=== PATIENT | female | born 1980 | race Caucasian/White ===

== ENCOUNTER 2019-05-23 05:37 | Inpatient (IN) | payer OTHER ==
[2019-05-23] VITALS (22 sets, daily range): BP systolic 107–140; BP diastolic 57–83; PULSE 70–84; RESP 10–19; Ht 160 cm; Wt 74.0 kg
[~2019-05-23] VITALS: Ht 160 cm; Wt 74.0 kg
--- NOTE | 2019-05-23 07:30 | HP ---
Date/Time of Note Date/Time of Note DATE: 05/23/19 TIME: 07:26 Assessment/Plan VTE Prophylaxis SCD applied (from Nsg): Yes Pharmacological prophylaxis: LMWH Lines/Catheters IV Catheter Type (from Nrsg): Peripheral IV Assessment/Plan Assessment/Plan Fibroid uterus Menometrorrhagia Plan: Exploratory Laparotomy, Total Abdominal Hysterectomy, Bilateral Salpingectomy HPI/ROS Admit Date/Time Admit Date/Time May 23, 2019 at 05:37 Hx of Present Illness 39 YO with fibroid uterus and menorrhagia desires to have definitive surgery with hysterectomy. options of removing or retaining the ovaries d/w patient. the risk of future ovarian cancer which is 1 in 60 women d/w patient. she desires to retain her ovaries. Surgical risks including infection, bleeding, damage to other organs, blood transfusion d/w patient. Informed consent obtained. ROS Constitutional: no complaints, improved Eyes: no complaints ENT: no complaints Respiratory: no complaints Cardiovascular: no complaints Gastrointestinal: no complaints Genitourinary: no complaints Musculoskeletal: no complaints Skin: no complaints Neurologic: no complaints Endocrine: no complaints Lymphatic: no complaints Psychological: no complaints, nl mood/affect Immunologic: no complaints PMH/Family/Social Past Medical History Medical History: other (Migraines, h/o gastric ulcer) Coded Allergies: butabarbital (Verified Allergy, Unknown, 05/23/19) clindamycin (Verified Allergy, Unknown, 05/23/19) Past Surgical History Past Surgical Hx: cholecystectomy (umbilical hernia, delivery x 1), other Family History Significant Family History: no pertinent family hx Social History Alcohol Use: none Smoking Status: Never smoker Drug Use: none Exam/Review of Systems Vital Signs Vitals Vital Signs Date Temp Pulse Resp B/P (MAP) Pulse Ox O2 O2 Flow FiO2 Time Delivery Rate 05/23/19 98.0 79 18 116/64 98 06:38 (81) Exam Constitutional: alert, oriented, well developed Psych: no complaints, nl mood/affect Head: normocephalic, atraumatic Eyes: nl conjunctiva, EOMI, nl lids, nl sclera, PERRL ENMT: nl external ears & nose, nl lips & teeth, nl nasal mucosa & septum Neck: supple, non-tender Respiratory: clear to auscultation, normal air movement Cardiovascular: regular rate and rhythm, nl pulses Gastrointestinal: soft, nl liver, spleen, non-tender Musculoskeletal: nl extremities to inspection Extremities: normal pulses Neurological: DEPENDENCY PROGRAM DIRECTOR II-XII intact, nl mental status, nl speech, nl strength Skin: nl turgor; No rash or lesions Lymph: nl lymph nodes SHANDA FELTON MD May 23, 2019 07:30
--- NOTE | 2019-05-23 07:34 | PREAC ---
Date/Time of Note Date/Time of Note DATE: 05/23/19 TIME: 07:33 Anesthesia Eval and Record Evaluation Time Pre-Procedure Interview DATE: 05/23/19 TIME: 07:33 Age 39 Sex female NPO: 8 hrs Preoperative diagnosis bleeding Planned procedure explartory laparotom, YURIDIA Past Medical History Past Medical History: None Surgery & Anesthesia Issues No known issue Meds Anticoagulation: No Beta Giovani within 24 hr: No Reason Beta Giovani not given: Pt. not on B-Giovani No Active Prescriptions or Reported Meds Meds reviewed: Yes Allergies Coded Allergies: butabarbital (Verified Allergy, Unknown, 05/23/19) clindamycin (Verified Allergy, Unknown, 05/23/19) Allergies Reviewed: Yes Labs/Studies Labs Reviewed: Reviewed by anesthesiologist Blood Bank Test 05/23/19 06:26 05/23/19 06:44 Blood Product Summary Counts Blood Type O POSITIVE test: Negative Pre-procedure Exam Last vitals Vital Signs Date Temp Pulse Resp B/P (MAP) Pulse Ox O2 O2 Flow FiO2 Time Delivery Rate 05/23/19 98.0 79 18 116/64 98 06:38 (81) Airway: Adequate mouth opening, Adequate thyromental dist Mallampati: Mallampati III Teeth: Normal Lung: Normal Heart: Normal ASA Physical Status ASA physical status: 1 Emergency: None Pre-operative Attestations Prior to commencing anesthesia and surgery, the patient was re-evaluated, there was verification of: *The patient's identity *The results of appropriate recent lab work and preoperative vital signs *The above evaluation not changing prior to induction *Anesthetic plan, risk benefits, alternative and complications discussed with patient/family; questions answered; patient/family understands, accepts and wishes to proceed. ENE KING DO May 23, 2019 07:34
[2019-05-23] MEDS ORDERED: DIPHENHYDRAMINE 50 MG INJ ONE ×2 (07:40→09:58)
[2019-05-23] MEDS ORDERED: PROPOFOL 20 ML ONE (07:47)
[2019-05-23] MEDS ORDERED: ROCURONIUM 50 MG INJ ONE (07:47)
[2019-05-23] MEDS ORDERED: morphine SULFATE/PF (10 MG/10 ML) INJ ONE (07:49)
[2019-05-23] MEDS ORDERED: MIDAZOLAM 1 MG/ML 2 ML INJ ONE (07:49)
[2019-05-23] MEDS ORDERED: ONDANSETRON 4 MG INJ IV PRN (08:00)
[2019-05-23] MEDS ORDERED: DIPHENHYDRAMINE 50 MG INJ IV PRN (08:00)
[2019-05-23] MEDS ORDERED: NALOXONE (0.4 MG/ML) INJ IV PRN (08:00)
[2019-05-23] MEDS ORDERED: DESFLURANE 15 MIN ONE (08:00)
[2019-05-23] MEDS ORDERED: SCOPOLAMINE 1.5 MG PATCH ONE (08:05)
[2019-05-23] MEDS ORDERED: FAMOTIDINE 20 MG INJ ONE (08:05)
[2019-05-23] MEDS ORDERED: DEXAMETHASONE 4 MG/ML 5 ML INJ ONE ×2 (08:05→08:46)
[2019-05-23] MEDS ORDERED: ONDANSETRON 4 MG INJ ONE (08:05)
[2019-05-23] MEDS ORDERED: CEFAZOLIN 1 GM INJ ONE (08:05)
[2019-05-23] MEDS ORDERED: ROPIVACAINE 0.5 % 30 ML VIAL ONE (08:46)
[2019-05-23] MEDS ORDERED: SUGAMMADEX SODIUM 200 MG/2 ML VIAL IV ONE (09:50)
--- NOTE | 2019-05-23 09:53 | OPR ---
Date/Time of Note Date/Time of Note DATE: 05/23/19 TIME: 09:43 Operative Report Procedure Date: May 23, 2019 Preoperative Diagnosis Fibroid Uterus Menometrorrhagia Postoperative Diagnosis Same Operation/Procedure Performed Exploratory laparotomy Total abdominal hysterectomy Lysis of adhesions Bilateral salpingectomies. Surgeon Shanda Davis MD Pond Worker Caitlyn Tran MD Anesthesia Type: general Estimated Blood Loss: 100 - 150 ml's Transfusion none Specimen Uterus and Tubes Grafts/Implants none Tubes/Drains Ennis Cath Complications none Pt Condition Post Procedure: stable Disposition: PACU Procedure Description COMPLICATIONS: None. FINDINGS: There were dense adhesions from the omentum to anterior abdominal wall. normal ovaries bilaterally, fibroid uterus INFORMED CONSENT: Please see my preop H and P for the consent process. The patient desires to retain her ovaries despite being at relative risk of future ovarian cancer which is 1 in 60 women. DESCRIPTION OF PROCEDURE: She was taken to the operating room. General anesthesia was induced. She was prepped and draped in the usual sterile fashion. Vaginal prep and abdominal prep was done. Ennis catheter was inserted. She was in the supine position. After she was prepped and draped, surgical time out was done, surgery and patient was identified. Then, we proceeded and made a Pfannenstiel skin incision. Incision was taken down in layers. The fascia was cut, undermined, from the underlying muscle using sharp and blunt dissection. All the bleeders were cauterized. We had to proceed with lysis of adhesions from the omentum to the anterior ab dominal wall to get access to our surgical site, at all times protecting the bowel. We took down the adhesions and then an large Christian retractor was placed, 4 moist laparotomy packs were used to pack the bowel away. Two large clamps were used to grab the uterus. The right round ligament was coagulated and transected using the Voyant. Same procedure on the contralateral side. Then, we proceeded with developing a bladder flap using a sharp and blunt dissection. there was dense adhesions between bladder and low uterine segment. Bladder was pushed down. A window was developed in the round ligament and the utero-ovarian pedicle on the right side was coagulated and transected using the Voyant. There was no bleeding. Same procedure was done on contralateral side. Bladder flap was pushed further down and the right uterine artery pedicle was clamped, cut, suture ligated. The left uterine artery was clamped, cut, suture ligated. The bladder flap was pushed further down and the cardinal ligaments were clamped, cut, suture ligated using straight Renzo clamps and the uterosacrals were clamped, cut, suture ligated. The vagina was entered using a knife and using Roly scissors, the specimen was cut and sent to pathology. The vaginal apex on both sides was suture ligated and then interrupted sutures were used to place [id number] sutures to close the cuff. Bilateral salpingectomies were done using Voyant. We irrigated and then we filled the pelvis using warm water and there was absolutely no evidence of any bleeding from any our pedicles. Each pedicle was evaluated individually. The vaginal cuff was evaluated very carefully and there was no bleeding. At this time, the posterior peritoneum was closed using a 2-0 Vicryl and all laparotomy packs were removed. Christian removed. I explored the abdomen, there were no laparotomy packs left inside. The peritoneum was closed using 2-0 Vicryl. The rectus muscles reapproximated using 2-0 Vicryl. Rectus muscles, rectus fascia were evaluated, all bleeders cauterized. Rectus fascia was closed using #1 Vicryl. Subcutaneous tissue was cleaned, irrigated, all bleeders cauterized and closed using 3-0 plain and then the skin closed using Insorb. All counts were correct. The patient tolerated the procedure well. SHANDA DAVIS MD May 23, 2019 09:53
[2019-05-23] MEDS: METOCLOPRAMIDE 10 MG INJ IV PRN (10:22)
[2019-05-23] MEDS: ONDANSETRON 4 MG INJ IV PRN (10:23)
[2019-05-23] MEDS: morphine 2 MG INJ IV PRN ×4 (10:27→20:42)
[2019-05-23] MEDS: KETOROLAC 30 MG INJ IV PRN ×2 (10:27→18:56)
[2019-05-23] MEDS: OXYCODONE/ACETAMINOPHEN (5/325) TAB PO PRN ×2 (11:05→15:13)
--- NOTE | 2019-05-23 12:00 | PAC ---
Date/Time of Note Date/Time of Note DATE: 05/23/19 TIME: 11:59 Post-Anesthesia Notes Post-Anesthesia Note Last documented vital signs Vital Signs Date Temp Pulse Resp B/P (MAP) Pulse Ox O2 O2 Flow FiO2 Time Delivery Rate 05/23/19 73 14 134/75 100 Room Air 11:08 (94) 05/23/19 2.0 10:18 05/23/19 98.1 10:05 Activity: WNL Respiratory function: WNL Cardiovascular function: WNL Mental status: Baseline Pain reasonably controlled: Yes Hydration appropriate: Yes Nausea/Vomiting absent: Yes ENE KING DO May 23, 2019 12:00
[2019-05-23] MEDS: CEFAZOLIN 2 GM/50 ML (PMX) 50 ML IVPB SCH ×2 (14:56→22:50)
[2019-05-23] MEDS: MAGNESIUM HYDROXIDE 30ML CUP PO SCH (20:41)
[2019-05-23] MEDS: MINERAL OIL 30ML CUP PO SCH (20:41)
[2019-05-24] MEDS: morphine 2 MG INJ IV PRN ×4 (00:23→19:44)
[2019-05-24 02:00] VITALS: BP 99/61; PULSE 77; RESP 19
[2019-05-24] MEDS: CEFAZOLIN 2 GM/50 ML (PMX) 50 ML IVPB SCH (05:52)
[2019-05-24 08:00] VITALS: BP 100/63; PULSE 72; RESP 16
[2019-05-24] MEDS: MINERAL OIL 30ML CUP PO SCH ×2 (08:12→20:33)
[2019-05-24] MEDS: OXYCODONE/ACETAMINOPHEN (5/325) TAB PO PRN ×4 (08:12→23:50)
[2019-05-24] MEDS: ENOXAPARIN 40 MG/0.4 ML SYG SC SCH (08:12)
[2019-05-24] MEDS: MAGNESIUM HYDROXIDE 30ML CUP PO SCH ×2 (08:12→20:29)
--- NOTE | 2019-05-24 08:21 | PN ---
Date/Time of Note Date/Time of Note DATE: 05/24/19 TIME: 08:17 Assessment/Plan Lines/Catheters IV Catheter Type (from [facility]): Peripheral IV Ennis in Place (from [facility]): No Assessment/Plan Assessment/Plan POD # 1 s/p YURIDIA, ASHLEE Bilateral Salpingectomies plan is increase ambulation. advance diet. Laxatives Subjective 24 Hr Interval Summary Denies flats or BM. Denies BM. only ambulated to bathroom. she agrees to increase ambulation Constitutional: urine output Feeding: advancing diet Exam/Review of Systems Vital Signs Vitals Vital Signs Date Temp Pulse Resp B/P (MAP) Pulse Ox O2 O2 Flow FiO2 Time Delivery Rate 05/24/19 98.0 77 19 99/61 (74) 100 02:00 05/23/19 Room Air 12:50 05/23/19 2.0 10:18 Intake and Output 05/23/19 05/23/19 05/24/19 1515:00 23:00 07:00 IntakeIntake Total 2000 ml 290 ml 340 ml OutputOutput Total 1600 ml BalanceBalance 2000 ml -1310 ml 340 ml Exam Constitutional: alert, oriented, well developed Psych: no complaints, nl mood/affect Cardiovascular: regular rate and rhythm, nl pulses Gastrointestinal: other (sof, appropriate tenderness. incision is covered.) Extremities: normal pulses Results Result Diagram: 05/24/19 0539 05/24/19 0539 SHANDA FELTON MD May 24, 2019 08:21
[2019-05-24 14:30] VITALS: BP 110/59; PULSE 73; RESP 14
--- NOTE | 2019-05-24 15:43 | RADRPT ---
Vent Rate: 62 bpm RR Interval: 964 msec ID Interval: 138 msec QRS Duration: 89 msec QT Interval: 418 msec QTC Interval: 426 msec P-R-T Naoma: 63 - 61 - 51 degrees Sinus rhythm...normal P axis, V-rate 50- 99 Electronically Signed By: Justo Clement
[2019-05-24 20:00] VITALS: BP 110/55; PULSE 66; RESP 17
[2019-05-25 02:00] VITALS: BP 95/50; PULSE 65; RESP 15
[2019-05-25] MEDS: ONDANSETRON 4 MG INJ IV PRN ×2 (06:27→12:15)
[2019-05-25] MEDS: METOCLOPRAMIDE 10 MG INJ IV PRN (07:25)
[2019-05-25 08:07] VITALS: BP 120/59; PULSE 83; RESP 17
[2019-05-25] MEDS: MINERAL OIL 30ML CUP PO SCH ×2 (10:09→20:19)
[2019-05-25] MEDS: MAGNESIUM HYDROXIDE 30ML CUP PO SCH ×2 (10:09→20:19)
[2019-05-25] MEDS: ENOXAPARIN 40 MG/0.4 ML SYG SC SCH (10:11)
[2019-05-25 14:00] VITALS: BP 107/64; PULSE 80; RESP 16
[2019-05-25] MEDS: ACETAMINOPHEN 325 MG TAB PO PRN ×2 (14:45→19:17)
[2019-05-25 20:00] VITALS: BP 98/54; PULSE 76; RESP 18
--- NOTE | 2019-05-26 | QN ---
Documentation Comment passing flatus no b.m yet pain control ok vss afebrile abdomen soft wound dressing removed right half of wound not approximated well when dressing removed portion of steri strip off redressed after steri strip on CVA neg for tenderness vaginal spotting min once calf neg for tenderness po CBC12.1/11.9,35.5 A s/p YURIDIA ,lysis of adhesion BS P discharge home in am SURJIT CORRIGAN MD May 26, 2019 00:00
[2019-05-26 02:00] VITALS: BP 107/63; PULSE 85; RESP 17
[2019-05-26] MEDS: ACETAMINOPHEN 325 MG TAB PO PRN (03:00)
[2019-05-26] MEDS: ONDANSETRON 4 MG INJ IV PRN ×2 (03:00→12:37)
[2019-05-26 07:52] VITALS: BP 95/51; PULSE 83; RESP 16
[2019-05-26] MEDS: MAGNESIUM HYDROXIDE 30ML CUP PO SCH (08:52)
[2019-05-26] MEDS: ENOXAPARIN 40 MG/0.4 ML SYG SC SCH (08:52)
[2019-05-26] MEDS: MINERAL OIL 30ML CUP PO SCH (08:52)
[2019-05-26 10:21] VITALS: BP 106/73; PULSE 80; RESP 16
[2019-05-26 12:40] VITALS: BP 106/51; PULSE 95; RESP 16
--- NOTE | 2019-05-26 17:09 | PN ---
Date/Time of Note Date/Time of Note DATE: 05/26/19 TIME: 16:59 Assessment/Plan VTE Prophylaxis Risk score (from Ns)>0 risk: 4 SCD applied (from Ns): Yes Pharmacological prophylaxis: NA/contraindicated Pharm contraindication: low risk/ambulating Lines/Catheters IV Catheter Type (from [facility]): Saline Lock Central line still needed: No Urinary Cath still in place: No Assessment/Plan Hospital Course Status post exploratory laparotomy and total abdominal hysterectomy bilateral salpingectomy for menometrorrhagia Postoperative day #2 Nausea, likely related to narcotic medications and anesthesia Improved. will start again p.o. challenge after antiemetic Doing well in general Denies any pain. Denies any other symptoms. Stable for discharge if tolerated p.o. well this evening with a follow-up in 7 to 10 days with primary HIGH SPEED PRINTER OPERATOR office Dr. callaway Result Diagram: 05/24/19 0539 05/24/1939 Results 24hrs Laboratory Tests Test 05/26/19 06:10 Lab Scanned Report REFERENCE LAB Subjective 24 Hr Interval Summary Free Text/Dictation 05/26/2019 Subjective hx not possible: other (Patient reports had some nausea this morning. She tolerated diet yesterday. Has been ambulating. Denies any pain. Had bowel movement and passed flatus. Has appetite to eat. Denies any fever or chills.) Constitutional: other (Only feeling nausea this morning. Has appetite now. Denies any pain.) Eyes: No no complaints, No pain, No discharge, No redness, No visual change, No other ENT: No no complaints, No bleeding, No pain, No congestion, No discharge, No dysphagia, No sore throat, No other Respiratory: No no complaints, No pain, No cough, No pleuritic pain, No shortness of breath, No sputum, No wheezing, No other Cardiovascular: other (Nausea) Gastrointestinal: nausea; No no complaints, No pain, No blood, No constipation, No decreased appetite, No diarrhea, No flatus, No passing stool, No vomiting, No other Genitourinary: No no complaints, No bleeding, No dysuria, No discharge, No flank pain, No hematuria, No other Skin: No no complaints, No bruising, No erythema, No laceration, No pruritis, No rash, No skin lesions, No other Neurologic: No no complaints, No confusion, No dizziness, No focal-weakness, No headache, No syncope, No seizure, No other Endocrine: No no complaints, No polyuria, No polydypsia, No dry skin, No temp intolerance, No other Lymphatic: No no complaints, No adenopathy, No tender nodes, No lymphadema, No other Psychological: No no complaints, No nl mood/affect, No anxiety, No confusion, No depression, No suicidal, No other Immunologic: no complaints; No immunodeficiency, No pruritis, No rhinitis, No urticaria, No other Exam/Review of Systems Exam Vitals Vital Signs Date Temp Pulse Resp B/P (MAP) Pulse Ox O2 O2 Flow FiO2 Time Delivery Rate 05/26/19 98.4 95 16 106/51 100 12:40 (69) 05/25/19 Room Air 14:00 05/23/19 2.0 10:18 Intake and Output 05/25/19 05/25/19 05/26/19 1515:00 23:00 07:00 IntakeIntake Total 500 ml 800 ml OutputOutput Total 1100 ml BalanceBalance 500 ml -300 ml Constitutional: alert, oriented, well developed Psych: no complaints, nl mood/affect Head: normocephalic, atraumatic Eyes: nl conjunctiva, EOMI, nl lids ENMT: nl external ears & nose, nl lips & teeth Neck: supple Respiratory: clear to auscultation, normal air movement Cardiovascular: regular rate and rhythm, nl pulses Gastrointestinal: soft, other (Appropriate tenderness in the surgery incision. Old blood on the Steri-Strips noted. No evidence of hematoma or active bleeding. No evidence of erythema around the wound.) Results Results 24hrs Laboratory Tests Test 05/26/19 06:10 Lab Scanned Report REFERENCE LAB Medications Medication Current Medications Acetaminophen (Tylenol Tab) 650 mg Q4H PRN PO PAIN LEVEL 1-5 Last administered on 05/26/19at 03:00; Admin Dose 650 MG; Start 05/23/19 at 08:00 Oxycodone/ Acetaminophen (Percocet (5/ 325)) 1 tab Q4H PRN PO PAIN LEVEL 6-10 Last administered on 05/24/19at 23:50; Admin Dose 1 TAB; Start 05/23/19 at 08:00 Morphine Sulfate (morphine) 4 mg Q2H PRN IV BREAKTHROUGH PAIN Last administered on 05/24/19 19:44; Admin Dose 4 MG; Start 05/23/19 at 08:00 Ondansetron HCl (Zofran Inj) 4 mg Q6H PRN IV NAUSEA AND/OR VOMITING Last administered on 05/26/19 12:37; Admin Dose 4 MG; Start 05/23/19 at 08:00 Metoclopramide HCl (Reglan) 10 mg Q6H PRN IV NAUSEA AND/OR VOMITING Last administered on 05/25/19 07:25; Admin Dose 10 MG; Start 05/23/19 at 08:00 Enoxaparin Sodium (Lovenox) 40 mg DAILY SC Last administered on 05/25/19 10:11; Admin Dose 40 MG; Start 05/24/19 at 09:00 Mineral Oil (Mineral Oil) 30 ml BID PO Last administered on 05/25/19 20:19; Adm in Dose 30 ML; Start 05/23/19 at 21:00 Magnesium Hydroxide (Milk Of Mag) 30 ml BID PO Last administered on 05/25/19 20:19; Admin Dose 30 ML; Start 05/23/19 at 21:00 NAKUL OVIEDO MD May 26, 2019 17:08
--- NOTE | 2019-05-26 17:26 | PD.PPDC ---
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
--- NOTE | 2019-05-26 18:33 | DS ---
Date/Time of Note Date/Time of Note DATE: 05/26/19 TIME: 18:31 Discharge Summary Admission/Discharge Info Admit Date/Time May 23, 2019 at 05:37 Discharge Date/Time Discharge Diagnosis Status post hysterectomy with bilateral salpingectomy for menometrorrhagia. Alexandre hernandez desires definitive surgical management. Patient Condition: Good Consults None Procedures Total abdominal hysterectomy and bilateral salpingectomy Hx of Present Illness 39-year-old with menorrhagia secondary to symptomatic fibroid uterus desires to proceed with definitive surgical management via hysterectomy. She underwent an uncomplicated abdominal hysterectomy bilateral salpingectomy. Postoperatively she recovered well. Her vitals were stable. There was no complication intraoperatively and postoperatively. On postoperative day #2 p atient was noted to be stable enough for discharge. She was ambulating. Afebrile. Tolerating regular diet. Nausea resolved. Pain was well controlled with p.o. pain medication. Her vitals were stable prior to discharge home. She was advised to have a follow-up in 1 week with primary DIRECT CARE COUNSELOR office or sooner as needed Hospital Course Status post exploratory laparotomy and total abdominal hysterectomy bilateral salpingectomy for menometrorrhagia Postoperative day #2 Nausea, likely related to narcotic medications and anesthesia Improved. will start again p.o. challenge after antiemetic Doing well in general Denies any pain. Denies any other symptoms. Stable for discharge if tolerated p.o. well this evening with a follow-up in 7 to 10 days with primary DIRECT CARE COUNSELOR office Dr. callaway Home Meds No Active Prescriptions or Reported Meds Follow-up Plan In 1 week with primary DIRECT CARE COUNSELOR office or sooner as needed Primary Care Provider Not On Staff Doctor Time spent on discharge: > 30 minutes Pending Labs Laboratory Tests Test 05/26/19 06:10 Lab Scanned Report REFERENCE LAB [id number] NAKUL OVIEDO MD May 26, 2019 18:33
== END 2019-05-26 19:45 | disposition home health service (06) | DRG 743 ==
LOC: REC 05:37 → PP2 12:48
PROVIDERS: ADMIT Specialist; ATTEND Specialist
PROC: 0UT20ZZ Resection of Bilateral Ovaries, Open Approach (ICD-10-PCS; 2019-05-23)
PROC: 0UT70ZZ Resection of Bilateral Fallopian Tubes, Open Approach (ICD-10-PCS; 2019-05-23)
PROC: 0UTC0ZZ Resection of Cervix, Open Approach (ICD-10-PCS; 2019-05-23)
PROC: 0UT90ZZ Resection of Uterus, Open Approach (ICD-10-PCS; principal; 2019-05-23 07:30)
DX: D25.9 Leiomyoma of uterus, unspecified (principal); N92.1 Excessive and frequent menstruation with irregular cycle
CPT/HCPCS: 71045; 80048; 85025; 86850; 86900; 86901; 86920; 87086; 88307; 93005; J0690; J1100; J1200; J1650; J1885; J2250; J2270; J2274; J2405; J2765; J2795; J3010